=== PATIENT | male | born 1955 | race Caucasian/White ===

== ENCOUNTER 2024-09-14 19:17 | Emergency (ER) | payer OTHER, MEDICAID ==
[~2024-09-14] VITALS: Ht 180.3 cm; Wt 72.6 kg
[2024-09-14] MEDS: IV NORMAL SALINE 500 ML BAG IV ONE (19:34)
[2024-09-14 19:45] LABS: BASOPHILS # (AUTO) 0.1 K/UL (0.0-0.2); BASOPHILS % (AUTO) 0.7 % (0.0-2.0); EOSINOPHILS # (AUTO) 0.8 K/uL (0.0-0.7); EOSINOPHILS % (AUTO) 9.2 % (0.0-7.0); HEMATOCRIT 33.7 % (36.7-47.1); HEMOGLOBIN 11.7 g/dL (12.5-16.3); LYMPHOCYTES # (AUTO) 1.3 K/uL (0.8-4.8); LYMPHOCYTES % (AUTO) 14.2 % (20.5-51.5); MEAN CORPUSCULAR HEMOGLOBIN 35.1 uug (23.8-33.4); MEAN CORPUSCULAR HGB CONC 35 g/dL (32.5-36.3); MEAN CORPUSCULAR VOLUME 101.3 fL (73.0-96.2); MONOCYTES # (AUTO) 0.9 K/uL (0.1-1.30); MONOCYTES % (AUTO) 10.3 % (0.0-11.0); NEUTROPHILS % (AUTO) 65.6 % (38.5-71.5); PLATELET COUNT (AUTO) 160 K/uL (152-348); RED BLOOD CELL COUNT(AUTO) 3.33 MIL/uL (4.06-5.63); RED CELL DISTRIBUTION WIDTH 13.8 % (12.1-16.2); WHITE BLOOD COUNT (AUTO) 9.2 K/uL (3.6-10.2)
[2024-09-14 19:49] LABS: DIFFERENTIAL COMMENT 1
[2024-09-14 19:51] LABS: CALCIUM 9.1 mg/dL (8.5-10.1); CREATININE 1.5 mg/dL (0.6-1.3); POTASSIUM 3.6 mmol/L (3.5-5.1)
[2024-09-14 19:57] LABS: ALBUMIN 2.7 g/dL (3.4-5.0); BILIRUBIN,TOTAL 0.6 mg/dL (0.2-1.0); C-REACTIVE PROTEIN 2.23 mg/dL (0.00-0.30); MAGNESIUM 1.4 mg/dL (1.8-2.4); TOTAL PROTEIN, SERUM 6.2 g/dL (6.4-8.2)
[2024-09-14] MEDS ORDERED: AMOX-430 PO (20:07)
[2024-09-14] MEDS ORDERED: DOXY100C5 PO (20:07)
[2024-09-14] MEDS ORDERED: AZITHROMYCIN 500MG/ D5W 250ML IVPB **ER PYXIS ONLY IV ONE (20:23)
[2024-09-14] MEDS ORDERED: CEFTRIAXONE /D5W 50ML IVPB **ER PYXIS IV ONE (20:23)
[2024-09-14] MEDS: MAGNESIUM OXIDE 400 MG TABLET PO ONE (20:26)
[2024-09-14] MEDS: CEFTRIAXONE 1 G in IV DEXTROSE 5% 50 ML IV ONE (20:27)
[2024-09-14] MEDS: AZITHROMYCIN IV 500 MG in IV DEXTROSE 5% 250 ML IV ONE (20:55)
[2024-09-14 23:35] VITALS: BP 61/160; TEMP 98; O2SAT 98
== END 2024-09-14 23:07 | disposition home or self-care (01) ==
LOC: ER 19:25
DX: J18.9 Pneumonia, unspecified organism (principal); R53.1 Weakness; E83.42 Hypomagnesemia; R07.89 Other chest pain; Z20.822 Contact with and (suspected) exposure to COVID-19
CPT/HCPCS: 99291; 96365; 71045; 96361; 96366; 87426; 87804 ×2; 80053; 83735; 85025; 84145; 86140; 93005; 96368; J0456; J0696; A4606; A4663